=== PATIENT | female | born 1955 | race Caucasian/White ===

== ENCOUNTER 2017-09-10 10:18 | Day surgery (SDC) | payer OTHER | END 2017-09-10 12:55 | disposition home or self-care (01) | LOC: GIL 10:18 | DX: Z12.11 Encounter for screening for malignant neoplasm of colon (principal); D12.2 Benign neoplasm of ascending colon; K64.8 Other hemorrhoids | CPT/HCPCS: 45380; 88305 ==

== ENCOUNTER 2018-12-31 09:50 | Inpatient (IN) | payer OTHER ==
[2018-12-31] MEDS: LACTATED RINGER'S 1,000 ML IV ×2 (11:12→17:38)
[2018-12-31] MEDS ORDERED: VASOPRESSIN 20 UNITS INJ (12:24)
[2018-12-31] MEDS ORDERED: LIDOCAINE 1%/EPI (1:100,000) (MDV) 20 ML (12:24)
[2018-12-31] MEDS ORDERED: SODIUM CL BACTERIOSTATIC 30 ML INJ (12:25)
[2018-12-31] MEDS ORDERED: METHYLENE BLUE 50 MG/10 ML AMPUL (12:25)
[2018-12-31] MEDS ORDERED: MIDAZOLAM 1 MG/ML 2 ML INJ (12:51)
[2018-12-31] MEDS ORDERED: morphine SULFATE/PF (10 MG/10 ML) INJ (12:51)
[2018-12-31] MEDS ORDERED: NALOXONE (0.4 MG/ML) INJ IV (14:30)
[2018-12-31] MEDS ORDERED: HYDROmorphONE 0.5 MG/0.5 ML SYG IV ×2 (14:30)
[2018-12-31] MEDS ORDERED: ZOLPIDEM 5 MG TAB PO (14:30)
[2018-12-31] MEDS ORDERED: ONDANSETRON 4 MG INJ (15:20)
[2018-12-31] MEDS ORDERED: DEXAMETHASONE 4 MG/ML 5 ML INJ (15:20)
[2018-12-31] MEDS ORDERED: LIDOCAINE 2% (SDV) 5 ML INJ (15:22)
[2018-12-31] MEDS ORDERED: ROCURONIUM 50 MG INJ (15:22)
[2018-12-31] MEDS ORDERED: PHENYLephrine (100 MCG/ML) 10ML SYG (15:22)
[2018-12-31] MEDS ORDERED: ROPIVACAINE 0.5 % 30 ML VIAL (15:22)
[2018-12-31] MEDS ORDERED: ETOMIDATE 20 MG INJ (15:22)
[2018-12-31] MEDS ORDERED: SUCCINYLCHOLINE CHLORIDE 100 MG/5 ML SYG IV (15:22)
[2018-12-31] MEDS ORDERED: ONDANSETRON 4 MG INJ IV (15:30)
[2018-12-31] MEDS ORDERED: morphine 2 MG INJ IV (15:30)
[2018-12-31] MEDS ORDERED: ACETAMINOPHEN 325 MG TAB PO (15:30)
[2018-12-31] MEDS ORDERED: HYDROCODONE/APAP (5/325) TAB PO (15:30)
[2018-12-31] MEDS ORDERED: SUGAMMADEX SODIUM 200 MG/2 ML VIAL IV (15:40)
[2018-12-31] MEDS: ONDANSETRON 4 MG INJ IV ×2 (16:26→16:55)
[2018-12-31] MEDS: METOCLOPRAMIDE 10 MG INJ IV ×2 (16:44→22:57)
[2018-12-31 17:29] LABS: ADD MAN DIFF? NO
[2018-12-31 17:32] LABS: BASOPHILS % 0.3 % (0.0-2.0); EOSINOPHILS # 0.1 10^3/ul (0.0-0.5); EOSINOPHILS % 0.7 % (0.0-7.0); HEMATOCRIT 37.3 % (37.0-47.0); HEMOGLOBIN 12.4 g/dl (12.0-16.0); LYMPHOCYTES # 1.7 10^3/ul (0.8-2.9); LYMPHOCYTES % 25.2 % (15.0-51.0); MEAN CORPUSCULAR HEMOGLOBIN 27.8 pg (29.0-33.0); MEAN CORPUSCULAR HGB CONC 33.2 g/dl (32.0-37.0); MEAN CORPUSCULAR VOLUME 83.6 fl (82.0-101.0); MEAN PLATELET VOLUME 11.1 fl (7.4-10.4); MONOCYTE # 0.2 10^3/ul (0.3-0.9); MONOCYTES % 3.6 % (0.0-11.0); NEUTROPHIL # 4.7 10^3/ul (1.6-7.5); NEUTROPHILS % 69.8 % (39.0-77.0); PLATELET COUNT 260 10^3/UL (140-415); RED BLOOD COUNT 4.46 10^6/ul (4.20-5.40)
[2018-12-31 17:32] LABS: WHITE BLOOD COUNT 6.7 10^3/ul (4.8-10.8)
[2018-12-31 17:49] LABS: ANION GAP 8 (5-13); BLOOD UREA NITROGEN 9 mg/dl (7-20); CALCIUM 8.6 mg/dl (8.4-10.2); CARBON DIOXIDE 23 mmol/L (21-31); CHLORIDE 105 mmol/L (97-110); CREATININE 0.37 mg/dl (0.44-1.00); Estimated GFR > 60 mL/min (>60); GLUCOSE 158 mg/dl (70-220); POTASSIUM 3.1 mmol/L (3.5-5.1); SODIUM 136 mmol/L (135-144)
[2019-01-01] MEDS: LACTATED RINGER'S 1,000 ML IV ×2 (04:09→11:27)
[2019-01-01 05:25] LABS: ADD MAN DIFF? NO
[2019-01-01 05:34] LABS: WHITE BLOOD COUNT 7.1 10^3/ul (4.8-10.8)
[2019-01-01 05:34] LABS: HEMATOCRIT 37.6 % (37.0-47.0); HEMOGLOBIN 12.5 g/dl (12.0-16.0); LYMPHOCYTES # 0.7 10^3/ul (0.8-2.9); LYMPHOCYTES % 9.1 % (15.0-51.0); MEAN CORPUSCULAR HEMOGLOBIN 28.3 pg (29.0-33.0); MEAN CORPUSCULAR HGB CONC 33.2 g/dl (32.0-37.0); MEAN CORPUSCULAR VOLUME 85.1 fl (82.0-101.0); MEAN PLATELET VOLUME 11.4 fl (7.4-10.4); MONOCYTE # 0.3 10^3/ul (0.3-0.9); MONOCYTES % 4.2 % (0.0-11.0); NEUTROPHIL # 6.2 10^3/ul (1.6-7.5); NEUTROPHILS % 86.6 % (39.0-77.0); PLATELET COUNT 302 10^3/UL (140-415); RED BLOOD COUNT 4.42 10^6/ul (4.20-5.40); RED CELL DISTRIBUTION WIDTH 12.8 % (11.5-14.5)
[2019-01-01 05:50] LABS: ANION GAP 9 (5-13); BLOOD UREA NITROGEN 8 mg/dl (7-20); CARBON DIOXIDE 27 mmol/L (21-31); CHLORIDE 101 mmol/L (97-110); Estimated GFR > 60 mL/min (>60); GLUCOSE 130 mg/dl (70-220); SODIUM 137 mmol/L (135-144)
[2019-01-01] MEDS: DIPHENHYDRAMINE 50 MG INJ IV (08:42)
[2019-01-01] MEDS ORDERED: DIPHENHYDRAMINE 25 MG CAP PO (11:30)
[2019-01-01] MEDS ORDERED: ONDANSETRON (ODT) 4 MG TAB ODT (11:30)
== END 2019-01-01 15:20 | disposition home or self-care (01) | DRG 983 ==
LOC: REC 09:50 → MS1 17:46
PROC: 0UT94ZZ Resection of Uterus, Percutaneous Endoscopic Approach (ICD-10-PCS; principal; 2018-12-31 12:00)
PROC: 0UT04ZZ Resection of Right Ovary, Percutaneous Endoscopic Approach (ICD-10-PCS; 2018-12-31 12:00)
PROC: 0UT54ZZ Resection of Right Fallopian Tube, Percutaneous Endoscopic Approach (ICD-10-PCS; 2018-12-31 12:00)
DX: R19.00 Intra-abdominal and pelvic swelling, mass and lump, unspecified site (principal); N95.0 Postmenopausal bleeding; N85.9 Noninflammatory disorder of uterus, unspecified; N83.9 Noninflammatory disorder of ovary, fallopian tube and broad ligament, unspecified; E78.5 Hyperlipidemia, unspecified; I10 Essential (primary) hypertension
CPT/HCPCS: 80048; 85025; 86850; 86870; 86900; 86901; 87086; 88307; 88331